=== PATIENT | female | born 1960 | race Caucasian/White ===

== ENCOUNTER → 2024-07-03 09:23 | Outpatient (REF) | payer BC, SELFPAY | LOC: HWWDC 09:23 | PROVIDERS: ATTENDING PHYSICIAN Physician Assistant Medical; REFERRING PHYSICIAN Advanced Practice Midwife | DX: Z12.31 Encounter for screening mammogram for malignant neoplasm of breast (principal) | CPT/HCPCS: 77063; 77067 ==